=== PATIENT | male | born 1955 | race American Indian/Alaskan Native ===

== ENCOUNTER 2017-11-19 11:28 | Outpatient (CLI) | payer OTHER ==
[2017-11-19] MEDS ORDERED: PROVENTIL IH ONE (12:18)
== END 2017-11-19 11:29 | disposition home or self-care (01) ==
LOC: PF 11:28
PROVIDERS: ATTEND Internal Medicine
DX: J45.909 Unspecified asthma, uncomplicated (principal); M54.5 Low back pain; F41.9 Anxiety disorder, unspecified
CPT/HCPCS: 94060; 94640; 94729